=== PATIENT | female | born 1960 | race Caucasian/White ===

== ENCOUNTER → 2017-03-03 | Outpatient (CLI) | payer BC ==
--- NOTE | 2017-03-07 08:55 | MM ---
Reason for exam: screening (asymptomatic). Last mammogram was performed 1 year and 10 months ago. History: Patient is postmenopausal and history of other cancer. Family history of breast cancer in grandmother. Excisional biopsy of the left breast. Taking estrogen for 3 years. Physical Findings: A clinical breast exam by your physician is recommended on an annual basis and results should be correlated with mammographic findings. MG Screening Mammo w CAD Bilateral CC and MLO view(s) were taken. Prior study comparison: May 08, 2015, bilateral MG screening mammo w CAD. June 15, 2012, bilateral digital screening mammo w/CAD. December 31, 2010, bilateral digital screening mammo w/CAD. There are scattered fibroglandular densities. There is chronic nodularity in the right breast. No significant changes when compared with prior studies. ASSESSMENT: Negative, BI-RAD 1 RECOMMENDATION: Routine screening mammogram of both breasts in 1 year.
== END | disposition home or self-care (01) ==
LOC: RADMAMWWP 13:20
PROVIDERS: ATTEND Family Medicine
DX: Z12.31 Encounter for screening mammogram for malignant neoplasm of breast (principal)

== ENCOUNTER 2017-04-11 18:28 | Emergency (ER) | payer BC ==
[2017-04-11] MEDS ORDERED: ONDANSETRON 4 MG/2 ML VIAL IVP STA (18:45)
[2017-04-11] MEDS ORDERED: SODIUM CHLORIDE 0.9% 1,000 ML IV ONE (18:45)
[2017-04-11] MEDS ORDERED: SODIUM CHLORIDE 0.9% 500 ML IV ONE (18:45)
[2017-04-11] MEDS ORDERED: HYDROmorphone 1 MG/ML 1 ML SYRINGE IVP STA ×3 (18:45→21:17)
--- NOTE | 2017-04-11 18:52 | ED ---
General Adult HPI - General Chief complaint: Fall Stated complaint: fell off horse Time Seen by Provider: 04/11/17 18:41 Source: patient, family, RN notes reviewed Mode of arrival: wheelchair Limitations: no limitations - History of Present Illness Initial comments: Chief complaint history of present illness a 48-year-old female here with family. The patient was reportedly thrown off a horse. Witnesses at the area said she was unconscious approximate 1 minute. Then had amnesia immediately thereafter she states she started murmur things now. She complaining of pain to her left clavicle left rib cage. Denies head or neck pain. Nausea but has not vomited. No open wounds are noted. - Related Data Home Medications Medication Instructions Recorded Confirmed ALPRAZolam [Xanax] 0.25 mg PO BID PRN 04/11/17 04/11/17 Cholecalciferol [Vitamin D3] 1,000 unit PO DAILY 04/11/17 04/11/17 Gabapentin [Neurontin] 300 mg PO TID PRN 04/11/17 04/11/17 Hydrocodone/Acetaminophen [Sweeny 1 tab PO BID PRN 04/11/17 04/11/17 10-325 Tablet] Losartan [Cozaar] 50 mg PO HS 04/11/17 04/11/17 Morphine Sulfate ER [Ms Contin 30 mg PO Q12HR 04/11/17 04/11/17 30Mg] Multivitamins, Thera [Multivitamin 1 tab PO DAILY 04/11/17 04/11/17 (formulary)] Potassium 99 mg PO DAILY 04/11/17 04/11/17 Allergies Allergy/AdvReac Type Severity Reaction Status Date / Time mold Allergy Rash/Hives/ Verified 04/11/17 20:33 Dyspnea Penicillins Allergy Rash/Hives Verified 04/11/17 20:33 Review of Systems ROS Statement: Those systems with pertinent positive or pertinent negative responses have been documented in the HPI. Review of systems. Patient was knocked out but denying headache or neck pain at this time. She does have left sided rib area pain and left clavicular pain. Denies any abdominal pain though she is nauseated. Patient did walk afterwards. Denying back pain at this time. No lower extremity or upper extremity pain. Asked medical problems obtained from previous charting include COPD, hypertension and shingles. ALLERGIES, amoxicillin. The patient's surgeries include hysterectomy breast lumpectomy. Family history noncontributory. Nonsmoker ROS Other: All systems not noted in ROS Statement are negative. Past Medical History Past Medical History: Asthma, COPD, Hypertension Additional Past Medical History / Comment(s): severe pain from shingles History of Any Multi-Drug Resistant Organisms: None Reported Past Surgical History: Hysterectomy, Orthopedic Surgery Additional Past Surgical History / Comment(s): lumpectomy cyst from wrist Past Psychological History: No Psychological Hx Reported Smoking Status: Never smoker Past Alcohol Use History: None Reported Past Drug Use History: None Reported General Exam - General Exam Comments Initial Comments: General: The patient is awake and alert, complaining of left clavicular left rib cage pain after falling off a horse. As reported that she was unconscious for approximately 1 minute. No seizure activity. She had amnesia for the event and the day initially but now she states she's remembering the events. Vital signs showed temperature 97.7 pulse 122 respiratory rate 18 pulse ox 95% room air blood pressure 173/93 Eye: Pupils are equal, round and reactive to light, extra-ocular movements are intact ; there is normal conjunctiva bilaterally. No signs of icterus. Ears, nose, mouth and throat: There are moist mucous membranes and no oral lesions. Neck: The neck is supple, there is no tenderness , no complaint of neck pain. Cardiovascular: Tachycardic heart rate, 120.. No murmur, rub or gallop is appreciated. Respiratory: Lungs clear and the right side and left side but at this time she complaining of rib cage pain left side. As well as left clavicular pain. Gastrointestinal: No complaint of abdominal pain with palpation at this time. Back: There is no tenderness to palpation in the midline. There is no obvious deformity. Musculoskeletal: Left clavicular pain. Left rib cage pain. Neurological: CN II-XII intact, There are no obvious motor or sensory deficits. Ambulated afterwards. Skin: Skin is warm and dry and no rashes or lesions are noted. Limitations: no limitations Course Vital Signs 04/11/17 04/11/17 18:30 20:03 Temperature 97.7 F Pulse Rate 122 H 98 Respiratory 18 18 Rate Blood Pressure 173/93 177/89 O2 Sat by Pulse 95 95 Oximetry Medical Decision Making - Medical Decision Making Medical decision making the patient's white count 11 hemoglobin 14.8 with hematocrit of 42, potassium 3.9 BUN 21 creatinine 0.9 and GFR greater than 60. Glucose 114. AST ALT mildly elevated. CT the brain and cervical spine were done and reviewed by radiologist the entire report was reviewed. His final impression is negative CT the brain. Negative computed tomography scan of the cervical spine. No fracture. As read by Dr. Reardon The patient had x-ray of her left clavicle was reviewed with the radiologist his finding as there was a nondisplaced fracture midshaft left clavicle. There is no dislocation. Before meals joint spaces normal. Impression nondisplaced left clavicular fracture. As read by Dr. Reardon X-ray of the pelvis was done reviewed by radiologist his finding is the pelvic rim is intact. Proximal femurs and hip joints. Tach. Sacral iliac joints appear normal. Impression; normal pelvis as read by Dr. Reardon. X-rays of the chest with left rib series was reviewed by radiologist his impression is no effusion or pneumothorax. There are multiple fractures of the left third fourth fifth 6, 7 ribs. There is nondisplaced fracture left clavicle. Heart size is normal. Impression multiple left rib fractures. Left clavicular fracture. No pneumothorax. As read by Dr. Reardon The patient does state that she has had multiple rib fractures on the left side from a previous accident. Is discussed with on-call trauma surgeon Dr. Rodriguez. Due to the fact the patient had a concussion the patient be transferred to [facility]. Case discussed with [facility] emergency room physician Dr. Goodman, she says the patient for transfer evaluation and management to the ER. Discussed that the reason and the family chose [facility] for transfer evaluation. They were told that when she gets a repeat chest x-ray and a CAT scan of the chest may be necessary. To make sure that is not a small pneumothorax or one this developing. Dr. Yusuf - Lab Data Result diagrams: 04/11/17 18:59 04/11/17 18:59 Lab Results 04/11/17 04/11/17 Range/Units 18:59 18:59 WBC 11.4 H (3.8-10.6) k/uL RBC 4.80 (3.80-5.40) m/uL Hgb 14.8 (11.4-16.0) gm/dL Hct 42.2 (34.0-46.0) % MCV 87.9 (80.0-100.0) fL MCH 30.9 (25.0-35.0) pg MCHC 35.1 (31.0-37.0) g/dL RDW 13.2 (11.5-15.5) % Plt Count 307 (150-450) k/uL Neutrophils % 79 % Lymphocytes % 13 % Monocytes % 5 % Eosinophils % 1 % Basophils % 1 % Neutrophils # 9.0 H (1.3-7.7) k/uL Lymphocytes # 1.5 (1.0-4.8) k/uL Monocytes # 0.5 (0-1.0) k/uL Eosinophils # 0.2 (0-0.7) k/uL Basophils # 0.1 (0-0.2) k/uL Sodium 143 (137-145) mmol/L Potassium 3.9 (3.5-5.1) mmol/L Chloride 105 (98-107) mmol/L Carbon Dioxide 27 (22-30) mmol/L Anion Gap 11 mmol/L BUN 21 H (7-17) mg/dL Creatinine 0.93 (0.52-1.04) mg/dL Est GFR (MDRD) Af Amer >60 (>60 ml/min/1.73 sqM) Est GFR (MDRD) Non-Af >60 (>60 ml/min/1.73 sqM) Glucose 114 H (74-99) mg/dL Calcium 9.5 (8.4-10.2) mg/dL Total Bilirubin 0.5 (0.2-1.3) mg/dL AST 59 H (14-36) U/L ALT 55 H (9-52) U/L Alkaline Phosphatase 97 (38-126) U/L Total Protein 7.1 (6.3-8.2) g/dL Albumin 4.6 (3.5-5.0) g/dL Disposition Clinical Impression: Multiple rib fractures involving four or more ribs, Concussion Disposition: OTHER INSTITUTION NOT DEFINED Condition: Serious Referrals: Ivan Millan MD [Primary Care Provider] - 1-2 days - Out of Hospital Transfer - Req. Specs Out of Hospital Transfer - Requested Specifics: Other Emergency Center ( Transferred to [facility] emergency room)
[2017-04-11 19:19] LABS: Basophils # (A) 0.1 k/uL (0-0.2); Basophils % (A) 1 %; CH 31.1; CHCM 35.5; Eosinophils # (A) 0.2 k/uL (0-0.7); Eosinophils % (A) 1 %; HCT 42.2 % (34.0-46.0); HDW 2.81; HGB 14.8 gm/dL (11.4-16.0); Luc # (Auto) 0.16; Luc % (Auto) 1; Lymphocytes # (A) 1.5 k/uL (1.0-4.8); Lymphocytes % (A) 13 %; MCH 30.9 pg (25.0-35.0); MCHC 35.1 g/dL (31.0-37.0); MCV 87.9 fL (80.0-100.0); Mean Platelet Volume 7.1; Monocytes # (A) 0.5 k/uL (0-1.0); Monocytes % (A) 5 %; Neutrophils % (A) 79 %; RDW 13.2 % (11.5-15.5); WBC 11.4 k/uL (3.8-10.6); WBC (Perox) 10.99
[2017-04-11 19:21] LABS: ALT 55 U/L (9-52); AST 59 U/L (14-36); Alkaline Phosphatase 97 U/L (38-126); Anion Gap 11 mmol/L; Blood Urea Nitrogen 21 mg/dL (7-17); Calcium 9.5 mg/dL (8.4-10.2); Carbon Dioxide 27 mmol/L (22-30); Chloride 105 mmol/L (98-107); Glucose 114 mg/dL (74-99); Non-African American GFR(MDRD) >60 (>60 ml/min/1.73 sqM); Potassium 3.9 mmol/L (3.5-5.1); Sodium 143 mmol/L (137-145); Total Bilirubin 0.5 mg/dL (0.2-1.3); Total Protein 7.1 g/dL (6.3-8.2)
--- NOTE | 2017-04-11 19:50 | CT ---
EXAMINATION TYPE: CT brain radhaine wo con DATE OF EXAM: 04/11/2017 7:39 PM COMPARISON: NONE HISTORY: Patient fell off horse. +LOC. Left shoulder and rib pain. CT DLP: 1537.20 mGycm Automated exposure control for dose reduction was used. TECHNIQUE: CT scan of the head and cervical spine are performed without contrast. FINDINGS: The ventricles and sulci appear normal. There is no mass effect nor midline shift. There is no sign of intracranial hemorrhage. The calvarium appears intact. The cervical vertebra have normal spacing and alignment. Posterior elements are intact. Facet joints appear intact. Skull base is intact. There is no sign of a fracture. There is mild facet arthropathy. IMPRESSION: Negative CT scan of the brain. Negative CT scan of the cervical spine. No fracture.
--- NOTE | 2017-04-11 20:01 | XR ---
EXAMINATION TYPE: XR ribs LT w pa chest xray DATE OF EXAM: 04/11/2017 7:57 PM COMPARISON: NONE HISTORY: Fell off horse TECHNIQUE: 3 views FINDINGS: I see no pleural effusion or pneumothorax. There are multiple fractures of the left third f ourth fifth sixth seventh ribs. There is nondisplaced fracture of left clavicle. Heart size is normal . IMPRESSION: Multiple left rib fractures. Left clavicle fracture. No pneumothorax.
--- NOTE | 2017-04-11 20:03 | XR ---
EXAMINATION TYPE: XR clavicle LT DATE OF EXAM: 04/11/2017 7:57 PM COMPARISON: NONE HISTORY: Fell off a horse TECHNIQUE: 2 views FINDINGS: There is nondisplaced fracture midshaft of the left clavicle. There is no dislocation. AC j oint space is normal. IMPRESSION: Nondisplaced left clavicle fracture.
--- NOTE | 2017-04-11 20:04 | XR ---
EXAMINATION TYPE: XR pelvis AP view DATE OF EXAM: 04/11/2017 7:57 PM COMPARISON: NONE HISTORY: Fell off a horse TECHNIQUE: Single view FINDINGS: Pelvic ring is intact. Proximal femurs and hip joints appear intact. Sacroiliac joints appe ar normal. IMPRESSION: Normal pelvis
[2017-04-11 21:00] VITALS: BP 160/98; PULSE 104
[2017-04-11 21:31] VITALS: RESP 18; TEMP 97.6
--- NOTE | 2017-04-11 22:35 | P.GSCN ---
History of Present Illness Consult date: 04/11/17 Reason for Consult: Status post fall from a horse Requesting physician: Marcelino Yusuf History of present illness: The patient is a 56-year-old female who presents after being thrown from a horse. She reports loss of consciousness including amnesia to events. She reports previous falls from a horse including injuries of rib fractures. She presented acutely with new onset rib fracture including along the left side and left clavicular fracture. She denies any headache. She denies abdominal pain. She has a personal history of lymphoma with previous chemotherapy. She regularly sees her primary care Dr. Ivan Millan. Trauma surgery consultation was obtained given her mechanism of injury and resultant multiple rib fractures. Review of Systems CONSTITUTIONAL: Denies any fever or chills. Denies recent weight loss or weight gain. HEENT: Denies any trouble with vision, hearing or nosebleeds. No difficulty swallowing. LYMPHATIC: The patient denies any lumps and bumps around the neck. ENDOCRINE: Denies any thyroid disorders. Denies any blood sugar glucose intolerance. RESPIRATORY: Denies pneumonia. Denies any troubles with breathing or dyspnea on exertion. CARDIOVASCULAR: Has chest pain. No palpitations, or recent heart attacks. GASTROINTESTINAL: Denies heart burn, constipation or bright red blood per rectum. GENITOURINARY: Denies any blood in urine or increased urinary frequency. MUSCULOSKELETAL: Has back pain, stiffness, joint arthritis. NEUROLOGIC: Denies any numbness or tingling along the distal extremities. No seizure disorders or headaches. Has history of chronic pain. PSYCHIATRIC: Denies depression or suidical ideation. HEMATOLOGIC: Previous history of rare form of lymphoma. Per his history of chemoradiation. Past Medical History Past Medical History: Asthma, COPD, Hypertension Additional Past Medical History / Comment(s): severe pain from shingles History of Any Multi-Drug Resistant Organisms: None Reported Past Surgical History: Hysterectomy, Orthopedic Surgery Additional Past Surgical History / Comment(s): lumpectomy cyst from wrist Past Psychological History: No Psychological Hx Reported Smoking Status: Never smoker Past Alcohol Use History: None Reported Past Drug Use History: None Reported Medications and Allergies Home Medications Medication Instructions Recorded Confirmed Type ALPRAZolam [Xanax] 0.25 mg PO BID PRN 04/11/17 04/11/17 History Cholecalciferol [Vitamin D3] 1,000 unit PO DAILY 04/11/17 04/11/17 History Gabapentin [Neurontin] 300 mg PO TID PRN 04/11/17 04/11/17 History Hydrocodone/Acetaminophen [Lynn 1 tab PO BID PRN 04/11/17 04/11/17 History 10-325 Tablet] Losartan [Cozaar] 50 mg PO HS 04/11/17 04/11/17 History Morphine Sulfate ER [Ms Contin 30 mg PO Q12HR 04/11/17 04/11/17 History 30Mg] Multivitamins, Thera [Multivitamin 1 tab PO DAILY 04/11/17 04/11/17 History (formulary)] Potassium 99 mg PO DAILY 04/11/17 04/11/17 History Allergies Allergy/AdvReac Type Severity Reaction Status Date / Time mold Allergy Rash/Hives/ Verified 04/11/17 20:33 Dyspnea Penicillins Allergy Rash/Hives Verified 04/11/17 20:33 Surgical - Exam Vital Signs Temp Pulse Resp BP Pulse Ox 97.7 F 122 H 18 173/93 95 04/11/17 18:30 04/11/17 18:30 04/11/17 18:30 04/11/17 18:30 04/11/17 18:30 GENERAL: Well developed and in no acute distress. Pleasant. HEENT: No sclera icterus. Extraocular movements grossly intact. Moist buccal mucosa. Head is atraumatic, normocephalic. Hears conversational speech. No nasal drainage. NECK: Supple without lymphadenopathy. No JV distention. No cervical spine tenderness. CHEST: Non-labored respirations and equal bilateral excursions. Tenderness along the left clavicle. Left arm sling placed. CARDIOVASCULAR: Regular rate and rhythm. Palpable 2+ radial pulses. ABDOMEN: Soft, nontender. Nondistended. MUSCULOSKELETAL: No clubbing, cyanosis or edema. NEUROLOGIC: No focal or lateralizing signs. Cranial 2 through 12 grossly intact. PSYCH: Appropriate affect. Alert and oriented to person, place and time. Results - Labs 04/11/17 18:59 04/11/17 18:59 Abnormal Lab Results - Last 24 Hours (Table) 04/11/17 04/11/17 Range/Units 18:59 18:59 WBC 11.4 H (3.8-10.6) k/uL Neutrophils # 9.0 H (1.3-7.7) k/uL BUN 21 H (7-17) mg/dL Glucose 114 H (74-99) mg/dL AST 59 H (14-36) U/L ALT 55 H (9-52) U/L Diabetes panel 04/11/17 Range/Units 18:59 Sodium 143 (137-145) mmol/L Potassium 3.9 (3.5-5.1) mmol/L Chloride 105 (98-107) mmol/L Carbon Dioxide 27 (22-30) mmol/L BUN 21 H (7-17) mg/dL Creatinine 0.93 (0.52-1.04) mg/dL Glucose 114 H (74-99) mg/dL Calcium 9.5 (8.4-10.2) mg/dL AST 59 H (14-36) U/L ALT 55 H (9-52) U/L Alkaline Phosphatase 97 (38-126) U/L Total Protein 7.1 (6.3-8.2) g/dL Albumin 4.6 (3.5-5.0) g/dL Calcium panel 04/11/17 Range/Units 18:59 Calcium 9.5 (8.4-10.2) mg/dL Albumin 4.6 (3.5-5.0) g/dL Pituitary panel 04/11/17 Range/Units 18:59 Sodium 143 (137-145) mmol/L Potassium 3.9 (3.5-5.1) mmol/L Chloride 105 (98-107) mmol/L Carbon Dioxide 27 (22-30) mmol/L BUN 21 H (7-17) mg/dL Creatinine 0.93 (0.52-1.04) mg/dL Glucose 114 H (74-99) mg/dL Calcium 9.5 (8.4-10.2) mg/dL Adrenal panel 04/11/17 Range/Units 18:59 Sodium 143 (137-145) mmol/L Potassium 3.9 (3.5-5.1) mmol/L Chloride 105 (98-107) mmol/L Carbon Dioxide 27 (22-30) mmol/L BUN 21 H (7-17) mg/dL Creatinine 0.93 (0.52-1.04) mg/dL Glucose 114 H (74-99) mg/dL Calcium 9.5 (8.4-10.2) mg/dL Total Bilirubin 0.5 (0.2-1.3) mg/dL AST 59 H (14-36) U/L ALT 55 H (9-52) U/L Alkaline Phosphatase 97 (38-126) U/L Total Protein 7.1 (6.3-8.2) g/dL Albumin 4.6 (3.5-5.0) g/dL - Imaging Chest x-ray: report reviewed, image reviewed Additional studies: CT head and neck reviewed Assessment and Plan (1) Animal-rider injured by fall from or being thrown from horse in noncollision accident, initial encounter Status: Acute (2) Elevated liver enzymes Status: Acute (3) Clavicle fracture, shaft Status: Acute (4) Left rib fracture Status: Acute (5) Amnesia (retrograde) Status: Acute (6) History of lymphoma Status: Acute (7) Concussion Status: Acute (8) Multiple rib fractures involving four or more ribs Status: Acute (9) Asthma Status: Acute (10) Hypertension Status: Acute (11) Chronic pain syndrome Status: Acute Plan: 1. With her loss of consciousness including retrograde amnesia and multiple acute rib fractures, I do agree with transfer of care to a tertiary care center particularly to evaluate head injury. 2. She is at risk for countercoup head injury where repeat head CT may be of benefit with neurosurgical support. 3. Also recommend thoracic support with possible rib blocks for multiple rib fractures along left side.
== END 2017-04-11 21:35 | disposition short-term general hospital (02) ==
LOC: EC 18:28
DX: S22.42XA Multiple fractures of ribs, left side, initial encounter for closed fracture (principal); S42.025A Nondisplaced fracture of shaft of left clavicle, initial encounter for closed fracture; S06.0X1A Concussion with loss of consciousness of 30 minutes or less, initial encounter; I10 Essential (primary) hypertension; Z79.891 Long term (current) use of opiate analgesic; Z79.899 Other long term (current) drug therapy; Z88.0 Allergy status to penicillin; Z91.048 Other nonmedicinal substance allergy status; V80.010A Animal-rider injured by fall from or being thrown from horse in noncollision accident, initial encounter
CPT/HCPCS: 99285; 96374; 96375 ×2; 96376; 96361 ×2; 36415; 80053; 85025; 71101; 72170; 73000; 72125; 70450; J2405; J1170

== ENCOUNTER → 2024-06-13 | Outpatient (CLI) | payer MEDICARE ==
[2024-06-13 15:12] LABS: Basophils # (A) 0.05 X 10*3/uL (0.00-0.10); Basophils % (A) 0.7 %; Eosinophils # (A) 0.23 X 10*3/uL (0.04-0.35); Eosinophils % (A) 3.1 %; HCT 42.7 % (37.2-46.3); HGB 14.4 g/dL (12.0-15.0); Lymphocytes # (A) 1.58 X 10*3/uL (0.90-5.00); Lymphocytes % (A) 21.1 %; MCH 31.2 pg (27.0-32.0); MCHC 33.7 g/dL (32.0-37.0); MCV 92.6 FL (80.0-97.0); Mean Platelet Volume 9.6 FL (9.5-12.2); Monocytes # (A) 0.71 X 10*3/uL (0.20-1.00); Monocytes % (A) 9.5 %; NRBC Per 100 WBC 0 X 10*3/uL (0.00-0.01); Neutrophils # (A) 4.89 X 10*3/uL (1.80-7.70); Neutrophils % (A) 65.3 %; Platelet Count 427 X 10*3/uL (140-440); RBC 4.61 X 10*6/uL (4.10-5.20); RDW 11.9 % (11.5-14.5); WBC 7.48 X 10*3/uL (4.50-10.00)
[2024-06-13 15:55] LABS: ALT 16 U/L (8-44); AST 18 U/L (13-35); Albumin 4.4 g/dL (3.8-4.9); Albumin/Globulin Ratio 1.91 Ratio (1.60-3.17); Alkaline Phosphatase 86 U/L (41-126); Blood Urea Nitrogen 13.5 mg/dL (9.0-27.0); Calcium 9.9 mg/dL (8.7-10.3); Carbon Dioxide 27.6 mmol/L (21.6-31.8); Chloride 98 mmol/L (96-109); Globulin 2.3 g/dL (1.6-3.3); Glucose 108 mg/dL (70-110); LDH 158 U/L (120-246); Potassium 3.4 mmol/L (3.5-5.5); Sodium 138 mmol/L (135-145); Total Bilirubin 0.2 mg/dL (0.3-1.2); Total Protein 6.7 g/dL (6.2-8.2)
== END | disposition home or self-care (01) ==
LOC: LABWHC1 11:14
PROVIDERS: ATTEND Physician Assistant
DX: C88.0 Waldenstrom macroglobulinemia (principal); E03.9 Hypothyroidism, unspecified
CPT/HCPCS: 36415; 80053; 82784; 83615; 84443; 85025

== ENCOUNTER 2025-03-19 16:37 | Emergency (ER) | payer MEDICARE ==
[2025-03-19 16:42] VITALS: TEMP 98
[2025-03-19 17:23] LABS: ALT 20 U/L (4-34); AST 29 U/L (14-36); African American GFR (CKD) >90 (>60 ml/min/1.73 sqM); Albumin 4.5 g/dL (3.5-5.0); Alkaline Phosphatase 75 U/L (38-126); Anion Gap 9 mmol/L; Blood Urea Nitrogen 11 mg/dL (7-17); Calcium 9.8 mg/dL (8.4-10.2); Carbon Dioxide 28 mmol/L (22-30); Chloride 89 mmol/L (98-107); Glucose 105 mg/dL (74-99); Magnesium 1.7 mg/dL (1.6-2.3); Non-African American GFR(CKD) 83 (>60 ml/min/1.73 sqM); Potassium 3.5 mmol/L (3.5-5.1); Sodium 126 mmol/L (137-145); Total Bilirubin 0.9 mg/dL (0.2-1.3); Total Protein 7.4 g/dL (6.3-8.2)
[2025-03-19 17:24] LABS: INR 0.9 (<1.2); Prothrombin Time 9.9 sec (10.0-12.5)
[2025-03-19 17:25] LABS: Partial Thromboplastin Time 23.6 sec (22.0-30.0)
--- NOTE | 2025-03-19 17:27 | ED ---
General Adult HPI - General Chief complaint: Recheck/Abnormal Lab/Rx Stated complaint: chest tightness Time Seen by Provider: 03/19/25 16:43 Source: patient Mode of arrival: ambulatory Limitations: no limitations - History of Present Illness Initial comments: Patient is a pleasant 64 y/o female presenting today for hypertension. Patient states that she can feel when her blood pressure is elevated because she feels jittery. States that she has noticed this increased chest tightness over the course of the last week. She was seen by her pain management doctor 1 week ago and her blood pressure was noted to be 165 systolic however she states that that doctor did not see anything at the time. She cannot get into see her PCP until the . Takes hydrochlorothiazie0-losartan, 100 mg daily for her hypertension without any recent missed dosages or changes to her medication. States she checked her blood pressure earlier today and was noted to be 190 systolic. She took an extra dose of her hydrochlorothiazide losartan and an old Xanax because she felt anxious and then came to the emergency department. She states that her chest does feel tight but states she also has a history of asthma and this is not completely abnormal for her. Denies any chest pain, lightheadedness, dizziness, changes in vision, focal numbness or weakness,headache, stroke like symptoms, LE swelling, abdominal pain, fevers, chills or changes in urination. Patient is a current smoker and states that she drinks 3 to 4 cups of coffee in the morning and 3 to 4 cups of coffee in the afternoon. - Related Data Home Medications Medication Instructions Recorded Confirmed ALPRAZolam [Xanax] 0.25 mg PO BID PRN 04/11/17 04/11/17 Cholecalciferol [Vitamin D3] 1,000 unit PO DAILY 04/11/17 04/11/17 Gabapentin [Neurontin] 300 mg PO TID PRN 04/11/17 04/11/17 Hydrocodone/Acetaminophen [[place] 1 tab PO BID PRN 04/11/17 04/11/17 10-325 Tablet] Losartan [Cozaar] 50 mg PO HS 04/11/17 04/11/17 Morphine Sulfate ER [Ms Contin 30 mg PO Q12HR 04/11/17 04/11/17 30Mg] Multivitamins, Thera [Multivitamin 1 tab PO DAILY 04/11/17 04/11/17 (formulary)] Potassium 99 mg PO DAILY 04/11/17 04/11/17 Allergies Allergy/AdvReac Type Severity Reaction Status Date / Time mold Allergy Rash/Hives/ Verified 03/19/25 16:42 Dyspnea Penicillins Allergy Rash/Hives Verified 03/19/25 16:42 Review of Systems ROS Statement: Those systems with pertinent positive or pertinent negative responses have been documented in the HPI. ROS Other: All systems not noted in ROS Statement are negative. Past Medical History Past Medical History: Asthma, COPD, Hypertension Additional Past Medical History / Comment(s): severe pain from shingles History of Any Multi-Drug Resistant Organisms: None Reported Past Surgical History: Hysterectomy, Orthopedic Surgery Additional Past Surgical History / Comment(s): lumpectomy cyst from wrist Past Psychological History: No Psychological Hx Reported Past Alcohol Use History: None Reported Past Drug Use History: None Reported General Exam - General Exam Comments Initial Comments: PE: CONSTITUTIONAL: No apparent distress, well appearing SKIN: Warm, dry, no jaundice, hives or petechiae EYES: Pupils are equally round, extraocular movements intact without nystagmus, clear conjunctiva, non-icteric sclera HENT: Normocephalic, atraumatic, moist mucus membranes, oropharynx clear without exudates NECK: , Full range of motion, normal appearance PULMONARY: Clear to auscultation without wheezes, rhonchi, or rales, normal excursion, no accessory muscle use and no stridor CARDIOVASCULAR: Regular rate, rhythm, normal S1 and S2. No appreciated murmurs, rubs or gallops. Strong radial pulses with intact distal perfusion. GASTROINTESTINAL: Soft, active bowel sounds throughout, non-tender, non- distended, no palpable masses, no rebound or guarding. No hepatosplenomegaly GENITOURINARY: MUSCULOSKELETAL: Extremities have no gross deformity, no edema, redness, or swelling. No calf swelling NEUROLOGIC:_a/o x 3, GCS 15, normal mentation and speech. Moves all extremities x 4 without motor or sensory deficit PSYCHIATRIC:_normal mood and affect, thought process is clear and linear Limitations: no limitations Course Vital Signs 03/19/25 03/19/25 03/19/25 16:39 16:42 17:04 Temperature 98.0 F Pulse Rate 85 75 Respiratory 16 16 16 Rate Blood Pressure 193/102 170/78 O2 Sat by Pulse 97 96 Oximetry 03/19/25 03/19/25 17:42 18:31 Temperature Pulse Rate 63 62 Respiratory 20 20 Rate Blood Pressure 150/76 135/68 O2 Sat by Pulse 96 96 Oximetry EKG Findings - EKG Comments: EKG Findings:: Sinus rhythm, rate 73 bpm ID interval within acceptable limits QT/QTc within normal limits, no significant ST elevations or depressions there is some slight artifact present, T wave inversion lead V3, no arrhythmia, no prior for comparison Medical Decision Making - Medical Decision Making Was pt. sent in by a medical professional or institution (, MARGARET, ROLLING MACHINE OPERATOR, urgent care, hospital, or assisted...) When possible be specific @ -No Did you speak to anyone other than the patient for history (EMS, parent, family, police, friend...)? What history was obtained from this source @ -No Did you review nursing and triage notes (agree or disagree)? Why? @ -I reviewed and agree with nursing and triage notes Were old charts reviewed (outside hosp., previous admission, EMS record, old EKG, old radiological studies, urgent care reports/EKG's, assisted records)? Report findings @ -Medical records reviewed Differential Diagnosis (chest pain, altered mental status, abdominal pain women, abdominal pain men, vaginal bleeding, weakness, fever, dyspnea, syncope, headache, dizziness, GI bleed, back pain, seizure, CVA, palpatations, mental health, musculoskeletal)? Differential diagnose remains broad over top considerations include hypertensive emergency, hypertensive urgency, medication noncompliance, electrode abnormality, new onset CHF, overintake of caffiene EKG interpreted by me (3pts min.). @ -As above X-rays interpreted by me (1pt min.). @Personally reviewed chest x-ray see no evidence of cardiomegaly, consolidations or pleural effusions CT interpreted by me (1pt min.). @ -None done U/S interpreted by me (1pt. min.). @ -None done What testing was considered but not performed or refused? (CT, X-rays, U/S, labs)? Why? @ -None What meds were considered but not given or refused? Why? @ -None Did you discuss the management of the patient with other professionals (professionals i.e. , MARGARET, ROLLING MACHINE OPERATOR, lab, RT, psych nurse, social studies teacher, store hand, teacher, branch lending officer, director of casework department)? Give summary @ -No Was smoking cessation discussed for >3mins.? @ -No Was critical care preformed (if so, how long)? @ -No Were there social determinants of health that impacted care today? How? (Homelessness, low income, unemployed, alcoholism, drug addiction, transportation, low edu. Level, literacy, decrease access to med. care, halfway, rehab)? @ -No Was there de-escalation of care discussed even if they declined (Discuss DNR or withdrawal of care, Hospice)? @ -No What co-morbidities impacted this encounter? (DM, HTN, Smoking, COPD, CAD, Cancer, CVA, ARF, Chemo, Hep., AIDS, mental health diagnosis, sleep apnea, morbid obesity)? @HTN Was patient admitted / discharged? Hospital course, mention meds given and route, prescriptions, significant lab abnormalities, going to OR and other pertinent info. @ -Discharged- Patient is a 64-year-old female past medical history of h ypertension, smoking presenting today for hypertension. Blood pressure on arrival 193/102. Patient is currently asymptomatic. No tachycardia. She does endorse excessive caffeine intake. I discussed with the patient plan for basic labs to assess for signs of endorgan damage. Her blood pressure is improving spontaneously, on my assessment systolic blood pressure down to 166. If labs are without signs of endorgan damage anticipate discharge. Patient agreeable plan of care. Had an extensive discussion with the patient regarding her caffeine intake and the importance of significantly decreasing it in order to avoid exacerbation of her hypertension. Labs and imaging reviewed. Grossly within normal limits. Abnormal values not concerning for acute pathology related to presenting complaint. Sodium 126. Patient given 1 L normal saline. Updated pt to findings. BP continues to improve. Discussed with pt decreasing her caffiene intake. We discussed the importance of monitoring her blood pressure with a blood pressure journal, by checking her blood pressure once daily and following up with her PCP regarding today's visit. Patient comfortable with discharge at this point. In my medical judgment there is currently no evidence of an immediate life- threatening or surgical condition. Discharge is therefore indicated at this time. Discharge treatment instructions, follow up instructions, and appropriate emergency department return precautions were discussed with the patient and/or medical decision maker. Patient and/or medical decision maker expressed understanding of and agreed with the treatment plan, follow up instructions, and emergency department return precaution. All patient's and/or medical decision maker's questions were answered. The patient was instructed to return to the ED for any changes in symptoms, persistent symptoms, inability to obtain proper follow-up or for any further concerns. Patient received verbal and written instructions for this condition. Undiagnosed new problem with uncertain prognosis? @ -No Drug Therapy requiring intensive monitoring for toxicity (Heparin, Nitro, Insulin, Cardizem)? @ -No Were any procedures done? @ -No Diagnosis/symptom? @ -Uncontrolled hypertension, excessive caffeine intake Acute, or Chronic, or Acute on Chronic? @Acute Uncomplicated (without systemic symptoms) or Complicated (systemic symptoms)? @Uncomplicated Side effects of treatment? @ -No Exacerbation, Progression, or Severe Exacerbation? @ -No Poses a threat to life or bodily function? How? (Chest pain, [place], [place], pneumonia, PE, COPD, DKA, ARF, appy, cholecystitis, CVA, Diverticulitis, Homicidal, Suicidal, threat to staff... and all critical care pts) @ -No not at time of discharge - Lab Data Result diagrams: 03/19/25 17:06 03/19/25 17:06 Lab Results 03/19/25 03/19/25 03/19/25 Range/Units 17:06 17:06 17:06 WBC 7.88 (4.50-10.00) 10*3/uL RBC 4.29 (4.10-5.20) 10*6/uL Hgb 13.8 (12.0-15.0) g/dL Hct 37.2 (37.2-46.3) % MCV 86.7 (80.0-97.0) fL MCH 32.2 H (27.0-32.0) pg MCHC 37.1 H (32.0-37.0) g/dL Plt Count 381 (140-440) 10*3/uL MPV 8.6 L (9.5-12.2) fL Immature Gran % (Auto) 0.4 % Neutrophils % 72.9 % Lymphocytes % 16.9 % Monocytes % 7.7 % Eosinophils % 1.6 % Basophils % 0.5 % Immature Gran # 0.03 (0.00-0.04) 10*3/uL Neutrophils # 5.74 (1.80-7.70) 10*3/uL Lymphocytes # 1.33 (0.90-5.00) 10*3/uL Monocytes # 0.61 (0.20-1.00) 10*3/uL Eosinophils # 0.13 (0.04-0.35) 10*3/uL Basophils # 0.04 (0.00-0.10) 10*3/uL PT 9.9 L (10.0-12.5) sec INR 0.9 (<1.2) APTT 23.6 (22.0-30.0) sec Sodium 126 L (137-145) mmol/L Potassium 3.5 (3.5-5.1) mmol/L Chloride 89 L (98-107) mmol/L Carbon Dioxide 28 (22-30) mmol/L Anion Gap 9 mmol/L BUN 11 (7-17) mg/dL Creatinine 0.76 (0.52-1.04) mg/dL Est GFR (CKD-EPI)AfAm >90 (>60 ml/min/1.73 sqM) Est GFR (CKD-EPI)NonAf 83 (>60 ml/min/1.73 sqM) Glucose 105 H (74-99) mg/dL Calcium 9.8 (8.4-10.2) mg/dL Magnesium 1.7 (1.6-2.3) mg/dL Total Bilirubin 0.9 (0.2-1.3) mg/dL AST 29 (14-36) U/L ALT 20 (4-34) U/L Alkaline Phosphatase 75 (38-126) U/L Troponin I (0.000-0.034) ng/mL NT-Pro-B Natriuret Pep pg/mL Total Protein 7.4 (6.3-8.2) g/dL Albumin 4.5 (3.5-5.0) g/dL 03/19/25 03/19/25 Range/Units 17:06 17:06 WBC (4.50-10.00) 10*3/uL RBC (4.10-5.20) 10*6/uL Hgb (12.0-15.0) g/dL Hct (37.2-46.3) % MCV (80.0-97.0) fL MCH (27.0-32.0) pg MCHC (32.0-37.0) g/dL Plt Count (140-440) 10*3/uL MPV (9.5-12.2) fL Immature Gran % (Auto) % Neutrophils % % Lymphocytes % % Monocytes % % Eosinophils % % Basophils % % Immature Gran # (0.00-0.04) 10*3/uL Neutrophils # (1.80-7.70) 10*3/uL Lymphocytes # (0.90-5.00) 10*3/uL Monocytes # (0.20-1.00) 10*3/uL Eosinophils # (0.04-0.35) 10*3/uL Basophils # (0.00-0.10) 10*3/uL PT (10.0-12.5) sec INR (<1.2) APTT (22.0-30.0) sec Sodium (137-145) mmol/L Potassium (3.5-5.1) mmol/L Chloride (98-107) mmol/L Carbon Dioxide (22-30) mmol/L Anion Gap mmol/L BUN (7-17) mg/dL Creatinine (0.52-1.04) mg/dL Est GFR (CKD-EPI)AfAm (>60 ml/min/1.73 sqM) Est GFR (CKD-EPI)NonAf (>60 ml/min/1.73 sqM) Glucose (74-99) mg/dL Calcium (8.4-10.2) mg/dL Magnesium (1.6-2.3) mg/dL Total Bilirubin (0.2-1.3) mg/dL AST (14-36) U/L ALT (4-34) U/L Alkaline Phosphatase (38-126) U/L Troponin I <0.012 (0.000-0.034) ng/mL NT-Pro-B Natriuret Pep 142 pg/mL Total Protein (6.3-8.2) g/dL Albumin (3.5-5.0) g/dL Disposition Clinical Impression: Hypertension, Excessive caffeine intake, Hyponatremia Disposition: HOME SELF-CARE Condition: Good Instructions (If sedation given, give patient instructions): Hypertension (ED) Additional Instructions: Every disease is a spectrum and a small chance still exists that a serious condition could develop, for this reason, please monitor yourself closely for new, changing or worsening symptoms, symptoms that persist beyond [48 hours], chest pain, shortness of breath, lower extremity swelling, strokelike symptom such as changes in vision, severe headache, new numbness or weakness, [fever], inability to tolerate/keep down fluids or your medications, inability to follow up with outpatient providers as instructed and should you experience these symptoms or should you have any further concerns for your wellbeing please return to the ED or call 911 immediately. Please continue your medications as prescribed. Please decrease your caffeine intake gradually, starting with decreasing it by half. Please follow-up with your primary care provider regarding today's visit, recheck of your blood pressure and any recommended adjustments to medications. PLEASE call your primary care physician as soon as possible to arrange / discuss plan for followup appointment. Appointment in the next 1-3 days is strongly encouraged if possible. PLEASE let us know here before you leave if there is anything further we can do to be of any assistance. Take care and feel Better! Is patient prescribed a controlled substance at d/c from ED?: No Referrals: Ivan Millan MD [Primary Care Provider] - 1-2 days
--- NOTE | 2025-03-19 17:40 | XR ---
EXAMINATION TYPE: XR chest 2V DATE OF EXAM: 03/19/2025 5:27 PM COMPARISON: 04/11/2017 CLINICAL INDICATION: Female, 64 years old with history of Chest Pain, TECHNIQUE: XR chest 2V view(s) obtained. FINDINGS: The heart size is normal. The pulmonary vasculature is normal. The lungs are clear. IMPRESSION: 1. No acute pulmonary process. [facility], Workstation: [facility], 03/19/2025 5:37 PM
[2025-03-19 17:42] LABS: Basophils # (A) 0.04 10*3/uL (0.00-0.10); Basophils % (A) 0.5 %; Eosinophils # (A) 0.13 10*3/uL (0.04-0.35); Eosinophils % (A) 1.6 %; HCT 37.2 % (37.2-46.3); HGB 13.8 g/dL (12.0-15.0); Lymphocytes # (A) 1.33 10*3/uL (0.90-5.00); Lymphocytes % (A) 16.9 %; MCH 32.2 pg (27.0-32.0); MCHC 37.1 g/dL (32.0-37.0); MCV 86.7 fL (80.0-97.0); Mean Platelet Volume 8.6 fL (9.5-12.2); Monocytes # (A) 0.61 10*3/uL (0.20-1.00); Monocytes % (A) 7.7 %; Neutrophils # (A) 5.74 10*3/uL (1.80-7.70); Neutrophils % (A) 72.9 %; Platelet Count 381 10*3/uL (140-440); RBC 4.29 10*6/uL (4.10-5.20); RDW 11.5 % (11.5-14.5); WBC 7.88 10*3/uL (4.50-10.00)
[2025-03-19] MEDS: SODIUM CHLORIDE 0.9% 1,000 ML IV ONE (18:11)
[2025-03-19 18:12] VITALS: RESP 20
[2025-03-19 18:33] VITALS: BP 135/68; PULSE 62
== END 2025-03-19 18:32 | disposition home or self-care (01) ==
LOC: EC 16:37
DX: I10 Essential (primary) hypertension (principal); E87.1 Hypo-osmolality and hyponatremia; F15.99 Other stimulant use, unspecified with unspecified stimulant-induced disorder; Z88.0 Allergy status to penicillin; Z77.120 Contact with and (suspected) exposure to mold (toxic)
CPT/HCPCS: 36415; 71046; 80053; 83735; 83880; 84484; 85025; 85610; 85730; 93005; 99285

== ENCOUNTER → 2025-05-30 | Outpatient (CLI) | payer MEDICARE ==
[2025-05-30 19:17] LABS: Basophils # (A) 0.06 X 10*3/uL (0.00-0.10); Basophils % (A) 0.7 %; Eosinophils # (A) 0.21 X 10*3/uL (0.04-0.35); Eosinophils % (A) 2.4 %; HCT 39.1 % (37.2-46.3); HGB 13.4 g/dL (12.0-15.0); Immature Grans, Automated 0.20 %; Lymphocytes # (A) 1.86 X 10*3/uL (0.90-5.00); Lymphocytes % (A) 21.2 %; MCH 31.5 pg (27.0-32.0); MCHC 34.3 g/dL (32.0-37.0); MCV 91.8 FL (80.0-97.0); Monocytes # (A) 0.79 X 10*3/uL (0.20-1.00); Monocytes % (A) 9.0 %; NRBC Per 100 WBC 0 X 10*3/uL (0.00-0.01); Neutrophils # (A) 5.84 X 10*3/uL (1.80-7.70); Neutrophils % (A) 66.5 %; Platelet Count 396 X 10*3/uL (140-440); RBC 4.26 X 10*6/uL (4.10-5.20); RDW 11.9 % (11.5-14.5); WBC 8.78 X 10*3/uL (4.50-10.00)
[2025-05-30 19:27] LABS: Immunoglobulin G 469.0 mg/dL (700.0-1600.0)
[2025-05-30 19:30] LABS: ALT 19 U/L (8-44); AST 21 U/L (13-35); Albumin 4.4 g/dL (3.8-4.9); Albumin/Globulin Ratio 1.91 Ratio (1.60-3.17); Alkaline Phosphatase 73 U/L (41-126); Anion Gap 11.90 mmol/L (4.00-12.00); BUN/Creat Ratio 14.10 Ratio (12.00-20.00); Blood Urea Nitrogen 14.1 mg/dL (9.0-27.0); Calcium 9.9 mg/dL (8.7-10.3); Carbon Dioxide 28.1 mmol/L (21.6-31.8); Chloride 95 mmol/L (96-109); Cholesterol 188.00 mg/dL (0.00-200.00); Globulin 2.3 g/dL (1.6-3.3); Glucose 88 mg/dL (70-110); HDL Cholesterol 46.00 mg/dL (40.00-60.00); LDH 153 U/L (120-246); LDL Cholesterol,Calculated 116.2 mg/dL (0.0-131.0); Potassium 4.0 mmol/L (3.5-5.5); Sodium 135 mmol/L (135-145); Total Protein 6.7 g/dL (6.2-8.2); Triglycerides 129.00 mg/dL (0.00-149.00); VLDL Calculation 25.80 mg/dL (5.00-40.00)
[2025-05-30 19:40] LABS: Immunoglobulin M 1085.0 mg/dL (40.0-280.0)
== END | disposition home or self-care (01) ==
LOC: LABWHC1 14:40
PROVIDERS: ATTEND Family Medicine
DX: C88.00 Waldenstrom macroglobulinemia not having achieved remission (principal); I10 Essential (primary) hypertension; E03.9 Hypothyroidism, unspecified; E78.00 Pure hypercholesterolemia, unspecified; R73.09 Other abnormal glucose
CPT/HCPCS: 36415; 80053; 80061; 82784; 83036; 83615; 84443; 85025